=== PATIENT | male | born 1925 | race Caucasian/White ===

== ENCOUNTER 2017-01-14 14:45 | Inpatient (IN) | payer MEDICARE, OTHER ==
[~2017-01-14] VITALS: Ht 167.6 cm; Wt 63.5 kg
[2017-01-14] MEDS ORDERED: NALOXONE 0.4 MG/ML VIAL. ONE (15:02)
[2017-01-14] MEDS ORDERED: IV NORMAL SALINE 1,000ML 1,000 ML IV SCH (15:08)
[2017-01-14] MEDS ORDERED: 0.9 % SODIUM CHLORIDE 10 ML DISP.SYRIN. IV PRN (15:15)
--- NOTE | 2017-01-14 15:23 | PHYS DOC ---
Past History Past Medical History: Dementia, Depression, GERD, Hypertension Smoking: Non-smoker Alcohol Use: None Drug Use: None Adult General Chief Complaint Chief Complaint: ALTERED MENTAL STATUS HPI HPI He is a pleasant 89-year-old male who is been brought into the emergency department for acute altered mental status changes and collapse. Patient is normally living in assisted living facility [facility] in which he was noted over the last 2 days of increased confusion. Today patient was found undressed and masturbating in public space in the facility. He was brought into [facility] evaluation. While up there patient exhibited no symptoms no complaints and was actually referred to the ER for an evaluation and clearance for admission to the hospital. Patient only complained to staff was that he was sleepy. While being transported down here at some point in time the patient became unresponsive, according to the family he began to turn somewhat blue and was not answering any questions or moving. Upon arrival here he was transferred to a wheelchair and brought in by staff in emergent sitting. Upon arrival he was placed on the gurney and noted to have a brisk bounding carotid pulse. His skin was warm without diaphoresis he had peripheral pulses noted at the radial and dorsalis pedis and femoral arteries. Patient had no spontaneous eye opening was withdrawing to pain, his gag was intact, is vital signs were stable. Patient's Accu-Chek on arrival was 90. Patient was immediately placed on the monitors, crash cart was brought to the bedside and he was placed on appropriate chest pads, he was administered 0.04 of Narcan which did not change. Patient was unable to provide any admission. Looking from his medical records he is presently being treated for depression, anxiety, osteoporosis, high blood pressure, dementia, reflux, And constipation.. After the patient was finally settled I spoke at length with the daughter at the bedside who claims over the last several weeks patient has been taking that he's been with the nursing staff that they've become increasingly concerned with. I'm saying this to them they're not surprised this is the act he attempted. Review of Systems Review of Systems Patient was not able to provide any history for us or review of systems was provided is provided by family who came with him. Constitutional: Denies fever or chills [] Eyes: Denies change in visual acuity, redness, or eye pain [] HENT: Denies nasal congestion or sore throat [] Respiratory: Denies cough or shortness of breath [] Cardiovascular: No additional information not addressed in HPI [] GI: Denies abdominal pain, nausea, vomiting, bloody stools or diarrhea [] : Denies dysuria or hematuria [] Musculoskeletal: Denies back pain or joint pain [] Integument: Denies rash or skin lesions [] Neurologic: Denies headache, he's had increased sleepiness and bizarre behavior last 2 days. Endocrine: Denies polyuria or polydipsia [] Current Medications Current Medications Current Medications Medications (Trade) Dose Ordered Sig/Ana Start Time Stop Time Status Last Admin Dose Admin Naloxone HCl (Narcan) 0.4 mg STK-MED ONCE 01/14/17 15:02 01/14/17 15:03 DC Allergies Allergies Allergies Coded Allergies Type Severity Reaction Last Updated Verified amlodipine Allergy Unknown 01/14/17 Yes amoxicillin Allergy Unknown 01/14/17 Yes fenofibrate Allergy Unknown 01/14/17 Yes morphine Allergy Unknown 01/14/17 Yes simvastatin Allergy Unknown 01/14/17 Yes Physical Exam Physical Exam Patient's vital signs heart rate of 52, blood pressure 161/78, oxygen saturation 93% on room air upon arrival. His respiratory rate 28. Constitutional: Well developed, well nourished, no acute distress, non-toxic appearance. Patient is not diaphoretic not pale not cyanotic in appearance. HENT: Normocephalic, atraumatic, bilateral external ears normal, dry mucous membranes no oral exudates, nose normal. [] Eyes: PERRLA, EOMI, conjunctiva normal, no discharge. No anisocoria noted. Neck: Normal range of motion, no tenderness, supple, no stridor. [] Cardiovascular:Heart rate regular rhythm, no murmur patient is noted to be bradycardic. Lungs & Thorax: Bilateral breath sounds clear to auscultation [] Abdomen: Bowel sounds normal, soft, no tenderness, no masses, no pulsatile masses. No Guzmán Jalloh sign, rectal exam patient is good rectal tone guaiac- negative with no gross blood. Patient was very resistant to exam noted when we try to expose him. Skin: Warm, dry, no erythema, no rash. He does have a little scrotal edema and redness. Extremities: No tenderness, no cyanosis, no clubbing, ROM intact, no edema. [] Neurologic: The able to localize the pain spontaneously opens his eyes at this point, not speaking. It was noted that when his arm is placed over his head he directed the arm to the side of his body and out of his face. Psychologic: He unable to participate in this exam. Current Patient Data Vital Signs Laboratory Tests Test 01/14/17 15:10 01/14/17 15:13 01/14/17 15:15 White Blood Count 11.0 x10^3/uL (4.0-11.0) Red Blood Count 4.74 x10^6/uL (4.30-5.70) Hemoglobin 14.7 g/dL (13.0-17.5) Hematocrit 44.6 % (39.0-53.0) Mean Corpuscular Volume 94 fL (79-100) Mean Corpuscular Hemoglobin 31 pg (25-35) Mean Corpuscular Hemoglobin Concent 33 g/dL (31-37) Red Cell Distribution Width 13.4 % (11.5-14.5) Platelet Count 155 x10^3/uL (140-400) Neutrophils (%) (Auto) 67 % (31-73) Lymphocytes (%) (Auto) 21 % (24-48) L Monocytes (%) (Auto) 11 % (0-9) H Eosinophils (%) (Auto) 1 % (0-3) Basophils (%) (Auto) 1 % (0-3) Neutrophils # (Auto) 7.3 x10^3uL (1.8-7.7) Lymphocytes # (Auto) 2.3 x10^3/uL (1.0-4.8) Monocytes # (Auto) 1.2 x10^3/uL (0.0-1.1) H Eosinophils # (Auto) 0.1 x10^3/uL (0.0-0.7) Basophils # (Auto) 0.1 x10^3/uL (0.0-0.2) Urine Collection Type U cath Urine Color Yellow Urine Clarity Hazy Urine pH 5.5 Urine Specific [place] 1.015 Urine Protein Neg (NEG-TRACE) Urine Glucose (UA) Neg mg/dL (NEG) Urine Ketones (Stick) Neg mg/dL (NEG) Urine Blood Trace (NEG) Urine Nitrite Neg (NEG) Urine Bilirubin Neg (NEG) Urine Urobilinogen Dipstick 0.2 mg/dL (0.2 mg/dL) Urine Leukocyte Esterase Neg (NEG) Urine RBC 1-2 /HPF (0-2) Urine WBC Occ /HPF (0-4) Urine Squamous Epithelial Cells None /LPF Urine Bacteria 0 /HPF (0-FEW) Urine Mucus Slight /LPF Sodium Level 140 mmol/L (136-145) Potassium Level 4.2 mmol/L (3.5-5.1) Chloride Level 105 mmol/L (98-107) Carbon Dioxide Level 26 mmol/L (21-32) Anion Gap 9 (6-14) Blood Urea Nitrogen 18 mg/dL (8-26) Creatinine 0.9 mg/dL (0.7-1.3) Estimated GFR (Cockcroft-Gault) 79.5 BUN/Creatinine Ratio 20 (6-20) Glucose Level 104 mg/dL (70-99) H Calcium Level 9.1 mg/dL (8.5-10.1) Magnesium Level 1.8 mg/dL (1.8-2.4) Total Bilirubin 0.7 mg/dL (0.2-1.0) Aspartate Amino Transferase (AST) 18 U/L (15-37) Alanine Aminotransferase (ALT) 18 U/L (16-63) Alkaline Phosphatase 111 U/L (46-116) Creatine Kinase 188 U/L (39-308) Creatine Kinase MB (Mass) 0.6 ng/mL (0.0-3.6) Creatine Kinase MB Relative Index 0.3 % (0-4) Troponin I Quantitative < 0.017 ng/mL (0-0.055) TN-Vln-I-Type Natriuretic Peptide 917 pg/mL (0-449) H Total Protein 7.5 g/dL (6.4-8.2) Albumin 3.7 g/dL (3.4-5.0) Albumin/Globulin Ratio 1.0 (1.0-1.7) Lipase 148 U/L (73-393) Urine Opiates Screen Neg (NEG) Urine Methadone Screen Neg (NEG) Urine Barbiturates Neg (NEG) Urine Phencyclidine Screen Neg (NEG) Urine Amphetamine/Methamphetamine Neg (NEG) Urine Benzodiazepines Screen Neg (NEG) Urine Cocaine Screen Neg (NEG) Urine Cannabinoids Screen Neg (NEG) Urine Ethyl Alcohol Neg (NEG) Salicylates Level 0.7 mg/dL (2.8-20.0) L Salicylate Last Dose Date Unk Salicylate Last Dose Time Unk Acetaminophen Level 4.0 mcg/mL (10-30) L Acetaminophen Last Dose Date Unk Acetaminophen Last Dose Time Unk Ethyl Alcohol Level < 10 mg/dL (0-10) EKG EKG [] EKG timed [address] Mahan demonstrates sinus bradycardia with heart rate 53. Urine: 62, QRS is 82, QTc is 434 NORMAL LIMITS. PATIENT HAS SOME NONSPECIFIC T-WAVE INVERSION IN INFERIOR LEADS NO ST SEGMENT ELEVATION IN AVR THERE IS T-WAVE INVERSION IN V1 THAT IS SOME LIMITATION LATERAL LEADS OR ISCHEMIC CHANGES THAT I CAN SEE. Radiology/Procedures Radiology/Procedures [] [address] [address] IMAGING REPORT Signed PATIENT: CHRISTIANE MCCOLLUM ACCOUNT: [id number] : 1925 LOCATION: ER AGE: 89 SEX: M EXAM STATUS: REG ER ORD. PHYSICIAN: MAURICE MAHAN MD REASON: unresponsive possible syncope PROCEDURE: PORTABLE CHEST 1V Chest radiograph 01/14/2017 at 1513 hours Indication: Unresponsive, possible syncope Comparison: None available Technique: Single upright portable view of the chest is provided. Findings: Cardiomediastinal silhouette is within normal limits. No pleural effusions, pulmonary vascular congestion or pneumothorax. The lungs are clear. Osseous structures are normal. Impression: No acute cardiopulmonary process. DICTATED AND SIGNED BY: MARY ARMSTRONG MD DATE: 01/14/17 154 CC: MAURICE MAHAN MD; SMOOTH ZHU JR, MD ~ [address] [address] IMAGING REPORT Signed PATIENT: CHRISTIANE MCCOLLUM ACCOUNT: [id number] : 1925 LOCATION: ER AGE: 89 SEX: M EXAM STATUS: REG ER ORD. PHYSICIAN: MAURICE MAHAN MD REASON: unresponsive PROCEDURE: CT HEAD WO CONTRAST CT of the head without contrast, 01/14/2017: History: Altered mental status, patient unresponsive There is mild cerebral atrophy. The ventricles are within normal limits in size. There is no shift of the midline structures. There is no evidence of acute intracranial hemorrhage or mass effect. There is calcific plaquing of the distal internal carotid and vertebral arteries. There is mild mucosal thickening in both ethmoid and maxillary sinuses. No free fluid is evident in the sinuses. IMPRESSION: No acute intracranial abnormality is detected. PQRS Compliance Statement: One or more of the following individualized dose reduction techniques were utilized for this examination: 1. Automated exposure control 2. Adjustment of the mA and/or kV according to patient size 3. Use of iterative reconstruction technique DICTATED AND SIGNED BY: LANA DESAI MD DATE: 01/14/171532 CC: MAURICE MAHAN MD; SMOOTH ZHU JR, MD ~ Course & Med Decision Making Course & Med Decision Making Pertinent Labs and Imaging studies reviewed. (See chart for details) Time is now 3:17 PM patient is awake and speak, opens his eyes spontaneously and will follow commands. Check again on arrival is 90. Patient was never in asystole only sinus bradycardia. Patient will be evaluated for causes of syncope My syncope differential includes but not limited to: Neurally mediated vasovagal syncope, situational syncope, cardiac sinus syncope , orthostatic hypertension, medications, psychiatric interventions, neurologic syncope, cardiogenic syncopal B, to include organic heart disease congestive heart failure, cardiac dysrhythmia, seizure disorder, stroke or transient ischemic attack, bradycardia dysrhythmias, tachycardia dysrhythmias, PT, V. fib V. fib, cardiac abnormalities like first degree secondary third-degree AV blocks , prolonged QT, hypertrophic Alberto myopathy, severe pulmonic stenosis, pulmonary arterial hypertension, atrial myxomas, aortic stenosis, valvular failure, alcohol consumption, adrenal insufficiency, drug effects from things like antidepressants, antihypertensive agents like beta blockers, vasodilators including calcium channel blockers and nitrates, autonomic insufficiency. Was initially considered upon arrival. His may also be secondary gain secondary to the idea that he does not want to be admitted to [facility] psychiatric floor. Time is now 3:30 patient is awake and alert and the first question of his mouth was that he wanted to know if everyone knew that he was still alive. More more story and his presentation seemed to be staged. At this point after discussion with family and reviewing his laboratory work which is really unremarkable. Patient will be admitted to the hospital for rule out [place] process to ensure that his neurologic status was back to baseline. And then transferred or admitted to the [facility] facility. Automatic Oven Operator note: Paged internal medicine retail sales consultant hospitalist at approximately 4: 20 PM Automatic Oven Operator called at of the service Dr. Elie MACKAY return my phone call at 4:30 PM Consult called back at Discussed the case I presented and they agreed with admission. Time of acceptance for 432 PM Impression: Near syncope, dementia, behavioral changes, [] Dragon Disclaimer Dragon Disclaimer This chart was dictated in whole or in part using Voice Recognition software in a busy, high-work load, and often noisy Emergency Department environment. It may contain unintended and wholly unrecognized errors or omissions. Departure Departure: Impression: Primary Impression: Near syncope Additional Impressions: Unresponsive Sinus bradycardia Disposition: ADMITTED INPATIENT Admitting Physician: Ally Rankin Condition: GUARDED Problem Qualifiers MAURICE MAHAN MD Jan 14, 2017 15:23
[2017-01-14 15:30] LABS: BASO # 0.1 x10^3/uL (0.0-0.2); BASO % 1 % (0-3); EOS # 0.1 x10^3/uL (0.0-0.7); EOS % 1 % (0-3); HEMATOCRIT 44.6 % (39.0-53.0); HEMOGLOBIN 14.7 g/dL (13.0-17.5); LYMPH # 2.3 x10^3/uL (1.0-4.8); LYMPH % 21 % (24-48); MEAN CORPUSCULAR HEMOGLOBIN 31 pg (25-35); MEAN CORPUSCULAR HGB CONC 33 g/dL (31-37); MEAN CORPUSCULAR VOLUME 94 fL (79-100); MONO # 1.2 x10^3/uL (0.0-1.1); MONO % 11 % (0-9); NEUT # 7.3 x10^3uL (1.8-7.7); NEUT % 67 % (31-73); PLATELET COUNT 155 x10^3/uL (140-400); RED BLOOD COUNT 4.74 x10^6/uL (4.30-5.70); RED CELL DISTRIBUTION WIDTH 13.4 % (11.5-14.5)
[2017-01-14] MEDS ORDERED: NALOXONE 0.4 MG/ML VIAL. IV ONE (15:30)
[2017-01-14 15:35] LABS: BARBITURATES NEG (NEG); BENZODIAZEPINES NEG (NEG); CANNABINOIDS NEG (NEG); COCAINE NEG (NEG); METHADONE NEG (NEG); OPIATES NEG (NEG); PHENCYCLIDINE NEG (NEG)
[2017-01-14 15:36] LABS: AMPHETAMINE/METHAMPHETAMINE NEG (NEG)
--- NOTE | 2017-01-14 15:37 | RAD ---
CT of the head without contrast, 01/14/2017: History: Altered mental status, patient unresponsive There is mild cerebral atrophy. The ventricles are within normal limits in size. There is no shift of the midline structures. There is no evidence of acute intracranial hemorrhage or mass effect. There is calcific plaquing of the distal internal carotid and vertebral arteries. There is mild mucosal thickening in both ethmoid and maxillary sinuses. No free fluid is evident in the sinuses. IMPRESSION: No acute intracranial abnormality is detected. PQRS Compliance Statement: One or more of the following individualized dose reduction techniques were utilized for this examination: 1. Automated exposure control 2. Adjustment of the mA and/or kV according to patient size 3. Use of iterative reconstruction technique
[2017-01-14 15:42] LABS: BACTERIA,URINE 0 /HPF (0-FEW); BILIRUBIN,URINE NEG (NEG); CLARITY,URINE HAZY; COLOR,URINE YELLOW; GLUCOSE,URINE NEG (NEG); NITRITE,URINE NEG (NEG); UROBILINOGEN,URINE 0.2 mg/dL (0.2 mg/dL); WBC,URINE OCC /HPF (0-4)
--- NOTE | 2017-01-14 15:44 | RAD ---
Chest radiograph 01/14/2017 at 1513 hours Indication: Unresponsive, possible syncope Comparison: None available Technique: Single upright portable view of the chest is provided. Findings: Cardiomediastinal silhouette is within normal limits. No pleural effusions, pulmonary vascular congestion or pneumothorax. The lungs are clear. Osseous structures are normal. Impression: No acute cardiopulmonary process.
[2017-01-14 15:53] LABS: SALIC 0.7 mg/dL (2.8-20.0)
[2017-01-14 15:55] LABS: ALBUMIN 3.7 g/dL (3.4-5.0); CALCIUM 9.1 mg/dL (8.5-10.1); CREATININE 0.9 mg/dL (0.7-1.3); GFR 79.5; MAGNESIUM 1.8 mg/dL (1.8-2.4); POTASSIUM 4.2 mmol/L (3.5-5.1); TOTAL BILIRUBIN 0.7 mg/dL (0.2-1.0); TOTAL PROTEIN 7.5 g/dL (6.4-8.2)
[2017-01-14] MEDS ORDERED: ACETAMINOPHEN 325 MG TABLET PO PRN (16:15)
--- NOTE | 2017-01-14 16:23 | EKG ---
[address] [address] Test Date: 2017-01-14 Test Time: 15:00:30 Pat Name: CHRISTIANE MCCOLLUM Department: Room: Gender: M Orchid Grower: NICHOL : 1925 Requested By: MAURICE MAHAN Order Number: [id number] Reading MD: Measurements Intervals [place] Rate: 53 P: 25 MO: 162 QRS: -32 QRSD: 92 T: -21 QT: 460 QTc: 434 Interpretive Statements SINUS RHYTHM ABNORMAL LEFT AXIS DEVIATION LEFT ANTERIOR FASCICULAR BLOCK QRS(T) CONTOUR ABNORMALITY CANNOT RULE OUT ANTEROSEPTAL MYOCARDIAL DAMAGE T ABNORMALITY IN INFERIOR LEADS RI6.01 Unconfirmed report No previous ECG available for comparison
[2017-01-14 17:22] VITALS: BP 176/66
[2017-01-14] MEDS: IV NORMAL SALINE 1,000ML 1,000 ML IV SCH (17:44)
--- NOTE | 2017-01-14 17:55 | NUR ---
The patient, CHRISTIANE MCCOLLUM, 89 y/o, M admitted by YUNI AMADOR MD, was given written information regarding hospital policies, unit procedures and contact persons. Patient admitted to room 109 from the ED and arrived at approx. 1715 via EMS. Valuables were checked and left in room with patient. Vital signs assessed and patient given meal tray. Patient's family at the bedside.
[2017-01-14] MEDS ORDERED: METO25TA4 PO (19:27)
[2017-01-14] MEDS ORDERED: CALC-450 PO (19:27)
[2017-01-14] MEDS ORDERED: MEMA21CA PO (19:27)
[2017-01-14] MEDS ORDERED: ACET500T68 PO (19:27)
[2017-01-14] MEDS ORDERED: LOPE2CAP PO (19:27)
[2017-01-14] MEDS ORDERED: CYAN10005 PO (19:27)
[2017-01-14] MEDS ORDERED: RANI150T2 PO (19:27)
[2017-01-14] MEDS ORDERED: GLUC-142 PO (19:27)
[2017-01-14] MEDS ORDERED: MV-M1TAB36 PO (19:27)
[2017-01-14] MEDS ORDERED: ALPR0.254 PO (19:27)
[2017-01-14] MEDS ORDERED: ESCITALOPRAM OX20 MG PO (19:27)
[2017-01-14] MEDS ORDERED: DONE10TA7 PO (19:27)
[2017-01-14] MEDS ORDERED: TRIA15CR50 TP (19:27)
[2017-01-14] MEDS ORDERED: FAMOTIDINE 20 MG TABLET PO PRN (20:00)
[2017-01-14] MEDS ORDERED: ALPRAZolam 0.25 MG TABLET PO PRN ×2 (20:00)
[2017-01-14] MEDS ORDERED: LOPERAMIDE 2 MG CAPSULE PO PRN (20:00)
[2017-01-14] MEDS ORDERED: TRIAMCINOLONE ACETONIDE 0.5% TOPICAL CREAM 15GM TUBE. TP PRN (20:00)
[2017-01-14] MEDS ORDERED: DONEPEZIL HCL 10 MG TABLET PO SCH (21:00)
[2017-01-14] MEDS: ACETAMINOPHEN 500 MG TABLET PO SCH (21:10)
[2017-01-14 23:35] VITALS: BP 142/58
--- NOTE | 2017-01-15 00:41 | ACF ---
Admission Criteria Forms MENTAL STATUS CHANGE Clinical Indications for Inpatient Care (Place 'X' for any and all applicable criteria): Ongoing inpatient care may be needed for 1 or more of the following(1)(2)(3)(5)( 6): [X]I. Suspected serious etiology (eg, medical disorder, ADMINISTRATION SPECIALIST event) of altered mental status [ ]II. Danger to self or others not manageable at lower level of care [ ]III. Grave disability (eg, inability to perform self care necessary at lower level of care) [ ]IV. Agitation or inappropriate behavior interfering with care for primary condition (eg, attempting to discontinue lines or drains prematurely, unable to cooperate with respiratory care) [ ]V. Delirium [A] [D][E] as described by 1 or more of the following(26): [ ]a) Delirium due to alcohol or sedative [F] withdrawal [ ]b) Delirium of uncertain etiology that has not responded to appropriate empiric treatment [ ]c) Delirium that prevents performance of a life-sustaining function (eg, feeding or hydrating oneself) [ ]. General contraindications and/or Inappropriate clinical situations for Observational Care in patients with Mental Status Change, when ANY ONE of the following is required: [ ]a) Prediction of prolongation of LOS based on ANY ONE of the following may be considered as a contraindication for observational care 2, 3, 4, 5, 6, 7, 8, 9, 10, 11 [ ]i) Age > 65 yrs. [ ]ii) Patient arriving by ambulance [ ]iii) Patient with high acuity [ ]iv) Patient requiring vital sign monitoring [ ]v) Patient on IV medication [ ]b) Systolic blood pressures greater than or equal to 180mmHg 3, 12 [ ]c) Patient with altered mental status including delirium and other alteration of consciousness, (3) [ ]d) Patient whose discharge disposition will be to a [facility]cf home or rehabilitation home should not be managed in Emergency Department Observation Unit. CMS rule requires 3 days hospital stay before such placement.3,13 [ ]e) Patient with failure to thrive due to broad array of etiologies 3,16,17 [ ]f) Inability to ambulate 3,14 Extended stay beyond goal length of stay for the primary condition may be needed until ALL of the following are present(3)(5): [ ]a) Underlying medical etiology of mental status change is absent, or has been established and adequately treated [ ]b) Danger to self or others is absent or manageable at lower level of care. [ ]c) Behavior crisis management, including physical or chemical restraints, is not required or available at lower level of car [ ]d) Substance or alcohol withdrawal is absent or manageable at lower level of care. [ ]e) Behavioral symptoms (eg, agitation, somnolence, inappropriate behavior) are absent, or are manageable at lower level of care. The original [facility] content created by [facility] has been revised. The portions of the content which have been revised are identified through the use of italic text or in bold, and [facility] has neither reviewed nor approved the modified material. All other unmodified content is copyright [facility]. Please see references footnoted in the original [facility] edition 2016 Admission Criteria Met?: Yes DANA CHAWLA Jan 15, 2017 00:41
[2017-01-15] MEDS: IV NORMAL SALINE 1,000ML 1,000 ML IV SCH (04:01)
[2017-01-15 05:15] VITALS: BP 133/71
--- NOTE | 2017-01-15 07:50 | NUR ---
Metoprolol held, HR 51 at rest. Pt had syncopal episode yesterday. Will discuss with physician in regards to possibly needing lower dose of metoprolol.
[2017-01-15] MEDS: ACETAMINOPHEN 500 MG TABLET PO SCH ×2 (08:10→14:42)
[2017-01-15] MEDS: MEMANTINE 5 MG TABLET. PO SCH ×2 (08:16→14:43)
[2017-01-15] MEDS ORDERED: CALCIUM CARB/VIT D3 500/200 TABLET PO SCH (09:00)
[2017-01-15] MEDS ORDERED: CITALOPRAM 20 MG TABLET. PO SCH (09:00)
[2017-01-15] MEDS ORDERED: GLUCOSAMINE/CHOND 500/400MG CAPSULE PO SCH (09:00)
[2017-01-15] MEDS ORDERED: MULTIVITAMIN with MINERAL TABLET. ONE (09:00)
[2017-01-15] MEDS ORDERED: CALCIUM CARB/VIT D3 500/200 TABLET ONE (09:00)
[2017-01-15] MEDS ORDERED: MEMANTINE 5 MG TABLET. ONE ×2 (09:00)
[2017-01-15] MEDS ORDERED: CITALOPRAM 20 MG TABLET. ONE (09:00)
[2017-01-15] MEDS ORDERED: METOPROLOL TART IMMED RELEASE 25 MG TABLET PO SCH (09:00)
[2017-01-15] MEDS ORDERED: GLUCOSAMINE/CHOND 500/400MG CAPSULE PO ONE (09:00)
[2017-01-15] MEDS ORDERED: MULTIVITAMIN I-VITE TABLET. PO SCH (09:00)
[2017-01-15 11:29] VITALS: BP 159/71
--- NOTE | 2017-01-15 15:40 | HP ---
ADMIT DATE: 01/15/2017 HISTORY OF PRESENT ILLNESS: The patient is an 89-year-old male patient, resident at [facility], was basically brought yesterday to the Emergency Department with acute altered mental status and collapsed. He normally resides in assisted living facility in [place], in which he was noted over the last 2 days of increased confusion and he was found actually undressed and masturbating in public space in the facility and he was brought into [facility]'s behavioral health evaluation. While up there, he exhibited no symptoms, no complaints and was actually referred to the ER for an evaluation and clearance for admission. The patient's only complaint to staff was that he was sleepy while being transported down to the Emergency Room. At some point in time, the patient became unresponsive. According to the family, he began to turn somewhat blue and was not answering any questions or moving. Upon arrival here, he was transferred to wheelchair and brought in by staff to an emergent sitting. He was placed in a gurney and noted to have brisk bounding carotid pulses. His skin was warm without diaphoresis. He had had peripheral pulses noted and dorsalis pedis and femoral arteries. He was withdrawing pain. His gag was intact. His vital signs were stable. His Accu-Cheks was 90 mg. He was immediately placed on the monitor. Crash cart was brought to the bedside. He was placed on appropriate chest bands. He was in fact given Narcan 0.4 mg without any changes. His daughter stated that over the last several weeks, the patient has been stating that he has been with the nursing staff as such they have become increasingly concerned and basically was evaluated in the Emergency Room where he was investigated and was found to be in sinus bradycardia, however he is on metoprolol. His first set of cardiac enzyme was less than 0.017. He was admitted to [address] [place] [address] to do 2 more sets of cardiac enzymes and to consult the cardiology team for possible syncopal episode. The patient himself is extremely demented and on questioning him, he denied any complaint. PAST MEDICAL HISTORY: Significant for hypertension, gastroesophageal reflux disease, depression, and dementia. He has also had bladder cancer. PAST SURGICAL HISTORY: Unremarkable. FAMILY HISTORY: Unremarkable. SOCIAL HISTORY: He is , lives in assisted living. He has apparently two daughters and one son, although he claims he has too many of them. He stated he used to be an ex-smoker and used to drink alcohol heavily, but not anymore. He is retired from [employer] business according to him. ALLERGIES: He is allergic to AMLODIPINE, AMOXICILLIN, FENOFIBRATE, MORPHINE and SIMVASTATIN. MEDICATIONS: He is currently on following medications: He is on Tylenol 500 mg 2 tablets 3 times a day; alprazolam 0.5 mg every 6 hours; alprazolam 0.25 mg, he takes 2 tablets every 6 hours for anxiety; calcium carbonate with vitamin D 1 tablet daily; cyanocobalamin 1000 mcg tablet once a month; Aricept 10 mg once a day; escitalopram oxalate 20 mg once a day; Osteo Bi-Flex tablet 1 tablet once a day; loperamide 2 mg as needed 3-4 times a day for diarrhea; Namenda XR 21 mg once a day; metoprolol 25 mg once a day. He has ranitidine 150 mg twice a day and triamcinolone acetonide cream apply 3 times a day. PHYSICAL EXAMINATION: GENERAL: On examining him, the patient looked well and was clearly in no apparent respiratory distress. He was pale, but no jaundice, cyanosis, or thyromegaly. No jugular venous distention. No limb edema. VITAL SIGNS: His heart rate was 53, blood pressure was 181/96, temperature was 98, respiratory rate 20, and oxygen saturation was 92% on room air. HEAD, EYES, EARS, NOSE, and THROAT: Showed normocephalic, atraumatic. NECK: Supple. HEART: Showed normal first and second heart sounds with no gallop, rub or murmur. CHEST: Clear to auscultation. No crepitation or rhonchi. ABDOMEN: Distended, soft, nontender. NEUROLOGIC: He is demented without any obvious lateralizing sign. All his cranial nerves are intact. EXTREMITIES: He moves extremities without difficulty, ambulates with a cane without any difficulty. LABORATORY DATA: His lab work on admission showed a serum sodium of 140, potassium 4.2, chloride 105, bicarbonate 26, anion gap of 9, BUN 18, creatinine 0.9, estimated GFR was 80 mL per minute. His glucose 104, calcium was 9.1, magnesium was 1.8. Total bilirubin, AST, ALT, alkaline phosphatase were normal. His first set of cardiac enzymes showed troponin to be less than 0.017. Beta natriuretic peptide was 917. Total protein 7.5, albumin 3.7. Serum lipase 148. White cell count was 11,000, hemoglobin 14.7, hematocrit 44.6, MCV 94 and platelet count of 155,000. His urinalysis was essentially unremarkable and urine toxicology was unremarkable. He did have a CT scan of the head, which basically showed that there is mild cerebral atrophy. The ventricles are within normal limits in size. There is no shift over the midline structures. There is no evidence of acute intracranial hemorrhage or mass effect. There is calcific plaquing of the distal internal carotid and vertebral arteries. There is mild mucosal thickening of both ethmoid and maxillary sinuses. No clear fluid is evident in sinuses. His chest x-ray showed that his cardiomediastinal silhouette is within normal limits. No pleural effusion, pulmonary vascular congestion, pneumothorax. The lungs are clear. Osseous structures are normal. PLAN: To admit to [facility] on telemetry bed. We will do 2 more sets of cardiac enzyme. We will consult the cardiology team, probably arrange for bilateral carotid Doppler ultrasound as well as echocardiogram and decide on further management accordingly. YUNI AMADOR MD DR: TERESO/anshu JOB#: [id number] / [id number]
[2017-01-15 15:50] VITALS: BP 166/63
--- NOTE | 2017-01-15 16:04 | NUR ---
Echo completed, patient down getting carotid dopplers at this time. Dr. Nguyen here at this time to see patient, discussed with doctor. States he will review echo and if everything is okay cardiac wilder then will be cleared by cardiology. Discussed status with family.
--- NOTE | 2017-01-15 17:11 | CARD ---
APPROVED REPORT EXAM: Two-dimensional and M-mode echocardiogram with Doppler and color Doppler. Other Information Quality : Average Rhythm : NSR INDICATION Syncope 2D DIMENSIONS Left Atrium(2D)3.4 (1.6-4.0cm)IVSd0.9 (0.7-1.1cm) Aortic Root(2D)2.9 (2.0-3.7cm)LVDd4.5 (3.9-5.9cm) LVOT Diameter2.1 (1.8-2.4cm)PWd1.0 (0.7-1.1cm) LVDs3.2 (2.5-4.0cm)FS (%) 28.3 % SV50.4 mlLVEF(%)54.9 (>50%) Aortic Valve AoV Peak Reynaldo.176.7cm/sAoV VTI43.0cm AO Peak GR.12.5mmHgLVOT Peak Reynaldo.104.8cm/s LVOT VTI 25.01cmAO Mean GR.7mmHg MIC (VMAX)2.01yk2LBR (VTI)2.00cm2 Mitral Valve MV E Yvpzjhgl30.2cm/sMV DECEL [id number] MV A Qpfeiyqj727.6cm/sMV WJK34ud E/A Ratio0.8MV A Yfaydzce991rl MVA (PHT)2.73cm2 Tricuspid Valve TR P. Avvqgfxm934tb/sTR Peak Gr.11mmHg LEFT VENTRICLE The left ventricle is normal size. There is normal left ventricular wall thickness. Left ventricle sy stolic function is normal. The Ejection Fraction is 50-55%. There is normal LV segmental wall motion. Tissue Doppler imaging reveals mild left ventricular diastolic dysfunction. Transmitral Doppler flow pattern is Grade I-abnormal relaxation pattern. RIGHT VENTRICLE The right ventricle is normal size. The right ventricular systolic function is normal. ATRIA The left atrium size is normal. The right atrium size is normal. The interatrial septum is intact wit h no evidence for an atrial septal defect or patent foramen ovale as noted on 2-D or Doppler imaging. AORTIC VALVE The aortic valve is mildly to moderately sclerotic. The aortic valve is trileaflet. Doppler and Color Flow revealed no significant aortic regurgitation. There is no significant aortic valvular stenosis. MITRAL VALVE The mitral valve leaflets are calcified. There is no mitral valve stenosis. Doppler and Color Flow re vealed trace mitral valve regurgitation. TRICUSPID VALVE The tricuspid valve is normal in structure and function. Doppler and Color Flow revealed no tricuspid valve regurgitation noted. There is no tricuspid valve stenosis. PULMONIC VALVE The pulmonic valve is not well visualized. Doppler and Color Flow revealed no pulmonic valvular regur gitation. There is no pulmonic valvular stenosis. GREAT VESSELS The aortic root is normal in size. Pulmonary veins not recorded. The IVC is normal in size and collap ses >50% with inspiration. PERICARDIAL EFFUSION There is no evidence of significant pericardial effusion. Critical Notification Critical Value: No <Conclusion> The left ventricle is normal size. Left ventricle systolic function is normal. The Ejection Fraction is 50-55%. There is normal left ventricular wall thickness. There is no significant aortic valvular stenosis. Doppler and Color Flow revealed no significant aortic regurgitation. Doppler and Color Flow revealed trace mitral valve regurgitation. Doppler and Color Flow revealed no tricuspid valve regurgitation noted. There is no evidence of significant pericardial effusion.
--- NOTE | 2017-01-15 17:16 | NUR ---
Dr. Rankin paged in regards to patient and will notify of ECHO and carotid results. Pt has removed both IVs and gown, requests to be dressed and leave at this time. Xanax given at this time to help decrease anxiety.
--- NOTE | 2017-01-15 17:28 | RAD ---
Carotid doppler ultrasound History: Syncopal episode, hypertension, smoker Multiple grayscale, color, and duplex spectral analysis waveform sonographic images were acquired of the carotid, subclavian, and vertebral arteries. Comparison: None Findings: RIGHT: PSV cm/sec EDV cm/sec Common carotid artery 78 9 Maximal internal carotid artery 76 19 External carotid artery 89 Vertebral artery 51 ICA/CCA ratio 0.98 LEFT: PSV cm/sec EDV cm/sec Common carotid artery 68 7 Maximum internal carotid artery could not be visualized External carotid artery 118 Vertebral artery 48 ICA/CCA ratio -- Velocities used to determine stenosis are known to correlate with NASCET angiographic criteria. Left internal carotid artery could not be visualized although reportedly patient moved during exam. There is antegrade flow in the bilateral vertebral arteries. There is intimal thickening bilaterally, also some mixed echogenicity plaque of the distal left common carotid artery and also the left carotid bulb and also of the right carotid bulb. Impression: 1. Left internal carotid artery could not be visualized, probably occluded of uncertain chronicity although exam reportedly degraded by motion. 2. There is mixed echogenicity plaque bilaterally. There is no evidence of a hemodynamically significant stenosis of the right internal carotid artery. FOR INTERNAL CODING PURPOSES Critical result: Findings discussed with patient's nurse Lucy at 01/15/2017 5:25 PM, to inform doctor of findings. RESULT CODE: (C) Electronically signed by: Idris Ramirez MD (01/15/2017 5:25 PM) [facility]
--- NOTE | 2017-01-15 18:02 | PDOC2 ---
CONSULT Date of Admission DATE: 01/15/17 TIME: 17:55 Reason for Consult: Possible syncope Referring Physician: Dr. Rankin Chief Complaint Decreased level of consciousness Source: Chart review Problem List Problems Medical Problems: (1) Near syncope Status: Acute (2) Sinus bradycardia Status: Acute (3) Unresponsive Status: Acute History of Present Illness The patient is an 89-year-old male who is brought to the emergency room yesterday due to several days of increasing mental confusion and possible collapse. Initial evaluation showed a sinus rhythm with no acute EKG ischemic changes and a normal troponin. CT head scan showed no acute changes. Patient had episodes of decreased level of consciousness and possible sinus bradycardia with rates into the 40s. He required no resuscitation. Narcan was not effected. He has been monitored overnight and remained in a sinus rhythm. Today he is responsive to questions. He denies chest pain or shortness of breath. He denies any dizziness today and is uncertain about the events overnight. His troponin has been normal 2. Echocardiogram and carotid ultrasound are pending. Cardiovascular: HTN CENTRAL NERVOUS SYSTEM: Dementia Psych: Depression Renal/: Bladder Ca. Past Surgical History: No pertinent history Family History: Hypertension Smoke: Quit ALCOHOL: other (test stopped the use of alcohol but possible past heavy use) Current Medications Current Medications Naloxone HCl (Narcan) 0.4 mg STK-MED ONCE .ROUTE ; Start 01/14/17 at 15:02; Stop 01/14/17 at 15:03; Status DC Sodium Chloride 1,000 ml @ 1,000 mls/hr Q1H IV Last administered on 01/14/17 15:44; Start 01/14/17 at 15:08; Stop 01/14/17 at 16:07; Status DC Sodium Chloride (Normal Saline Flush) 10 ml QSHIFT PRN IV AFTER MEDS AND BLOOD DRAWS; Start 01/14/17 at 15:15 Naloxone HCl (Narcan) 0.4 mg 1X ONCE IV Last administered on 01/14/17 15:17; Start 01/14/17 at 15:30; Stop 01/14/17 at 15:31; Status DC Sodium Chloride 1,000 ml @ 80 mls/hr [id number] IV Last administered on 04:01; Start 01/14/17 at 16:14; Stop 01/15/17 at 16:13; Status DC Acetaminophen (Tylenol) 650 mg PRN Q4HRS PRN PO FEVER; Start 01/14/17 at 16:15 ; Stop 01/15/17 at 16:14; Status DC Acetaminophen (Tylenol) 1,000 mg TID PO Last administered on 01/15/17 14:42; Start 01/14/17 at 21:00 Alprazolam (Xanax) 0.25 mg PRN Q6HRS PRN PO ANXIETY Last administered on 21:10; Start 01/14/17 at 20:00 Alprazolam (Xanax) 0.5 mg PRN Q6HRS PRN PO ANXIETY Last administered on 17:01; Start 01/14/17 at 20:00 Cyanocobalamin (Vitamin B-12) 1,000 mcg QMONTH PO ; Start 02/13/17 at 09:00 Donepezil HCl (Aricept) 10 mg HS PO Last administered on 01/14/17 21:10; Start 01/14/17 at 21:00 Loperamide HCl (Imodium) 2 mg QID PRN PO DIARRHEA; Start 01/14/17 at 20:00 Metoprolol Tartrate (Lopressor) 25 mg DAILY PO ; Start 01/15/17 at 09:00 Triamcinolone Acetonide (Aristocort) 1 ivy TID PRN PRN TP RASH; Start 01/14/17 at 20:00 Calcium/Vitamin D (Oscal D 500mg/ 200uts) 1 tab DAILY PO Last administered on 08:14; Start 01/15/17 at 09:00 Citalopram Hydrobromide (CeleXA) 40 mg DAILY PO Last administered on 01/15/17 08:14; Start 01/15/17 at 09:00 Glucosamine/ Chondroitin (Glucosamine-Chondroitin 500/400mg) 1 cap DAILY PO Last administered on 01/15/17 08:15; Start 01/15/17 at 09:00 Memantine (Namenda) 5 mg TID PO Last administered on 01/15/17 14:43; Start at 09:00 Multivitamins/ Minerals (I-Juan) 1 tab DAILY PO Last administered on 8/17/17at 08:10; Start 01/15/17 at 09:00 Famotidine (Pepcid) 20 mg BID PRN PO HEARTBURN / GAS; Start 01/14/17 at 20:00 Active Scripts Active Reported Alprazolam 0.25 Mg Tablet 2 Tab PO PRN Q6HRS PRN Alprazolam 0.25 Mg Tablet 1 Tab PO PRN Q6HRS PRN Triamcinolone Acetonide 15 Gm Cream..g. 1 Ivy TP TID PRN PRN Ranitidine Hcl 150 Mg Tablet 1 Tab PO BID PRN Donepezil Hcl 10 Mg Tablet 1 Tab PO HS Acetaminophen 500 Mg Tablet 2 Tab PO TID Loperamide (Loperamide Hcl) 2 Mg Capsule 2 Mg PO PRN 3-4XDAILY PRN Vitamin B-12 (Cyanocobalamin (Vitamin B-12)) 1,000 Mcg Tablet 1 Tab PO QMONTH Osteo Bi-Flex Tablet (Glucosamine/D3/Boswellia Destiny) 1 Each Tablet 1 Each PO DAILY Ocuvite Eye + Multi Tablet (Mv-Mn/FA/Vit K/Lycop/Lut/Zeaxa) 1 Each Tablet 1 Each PO DAILY Namenda Xr (Memantine Hcl) 21 Mg Cap.spr.24 21 Mg PO DAILY Metoprolol Tartrate 25 Mg Tablet 1 Tab PO DAILY Escitalopram Oxalate 20 Mg Tablet 1 Tab PO DAILY Caltrate 600 + D Soft Chew Tab (Calcium Carbonate/Vitamin D3) 1 Each Tab.chew 1 Each PO DAILY Allergies: Coded Allergies: amlodipine (Verified Allergy, Unknown, 01/14/17) amoxicillin (Verified Allergy, Unknown, 01/14/17) fenofibrate (Verified Allergy, Unknown, 01/14/17) morphine (Verified Allergy, Unknown, 01/14/17) simvastatin (Verified Allergy, Unknown, 01/14/17) General: YES: Fatigue PSYCHOLOGICAL ROS: YES: Anxiety Respiratory: YES: Shortness of breath, SOB with excertion General: No acute distress HEENT: Atraumatic Lungs: Clear to auscultation Heart: Regular rate Abdomen: Normal bowel sounds Extremities: No clubbing VITALS Vital Signs Date Time Temp Pulse Resp B/P (MAP) Pulse Ox O2 Delivery O2 Flow Rate FiO2 01/15/17 15:50 54 18 166/63 (97) 92 Room Air 01/15/17 11:29 98.1 01/15/17 05:15 2.0 Labs Laboratory Tests Test 01/14/17 14:58 01/14/17 15:10 01/14/17 15:13 01/14/17 15:15 Glucose (Fingerstick) 90 mg/dL (70-99) White Blood Count 11.0 x10^3/uL (4.0-11.0) Red Blood Count 4.74 x10^6/uL (4.30-5.70) Hemoglobin 14.7 g/dL (13.0-17.5) Hematocrit 44.6 % (39.0-53.0) Mean Corpuscular Volume 94 fL (79-100) Mean Corpuscular Hemoglobin 31 pg (25-35) Mean Corpuscular Hemoglobin Concent 33 g/dL (31-37) Red Cell Distribution Width 13.4 % (11.5-14.5) Platelet Count 155 x10^3/uL (140-400) Neutrophils (%) (Auto) 67 % (31-73) Lymphocytes (%) (Auto) 21 % (24-48) Monocytes (%) (Auto) 11 % (0-9) Eosinophils (%) (Auto) 1 % (0-3) Basophils (%) (Auto) 1 % (0-3) Neutrophils # (Auto) 7.3 x10^3uL (1.8-7.7) Lymphocytes # (Auto) 2.3 x10^3/uL (1.0-4.8) Monocytes # (Auto) 1.2 x10^3/uL (0.0-1.1) Eosinophils # (Auto) 0.1 x10^3/uL (0.0-0.7) Basophils # (Auto) 0.1 x10^3/uL (0.0-0.2) Urine Collection Type U cath Urine Color Yellow Urine Clarity Hazy Urine pH 5.5 Urine Specific [place] 1.015 Urine Protein Neg (NEG-TRACE) Urine Glucose (UA) Neg mg/dL (NEG) Urine Ketones (Stick) Neg mg/dL (NEG) Urine Blood Trace (NEG) Urine Nitrite Neg (NEG) Urine Bilirubin Neg (NEG) Urine Urobilinogen Dipstick 0.2 mg/dL (0.2 mg/dL) Urine Leukocyte Esterase Neg (NEG) Urine RBC 1-2 /HPF (0-2) Urine WBC Occ /HPF (0-4) Urine Squamous Epithelial Cells None /LPF Urine Bacteria 0 /HPF (0-FEW) Urine Mucus Slight /LPF Sodium Level 140 mmol/L (136-145) Potassium Level 4.2 mmol/L (3.5-5.1) Chloride Level 105 mmol/L (98-107) Carbon Dioxide Level 26 mmol/L (21-32) Anion Gap 9 (6-14) Blood Urea Nitrogen 18 mg/dL (8-26) Creatinine 0.9 mg/dL (0.7-1.3) Estimated GFR (Cockcroft-Gault) 79.5 BUN/Creatinine Ratio 20 (6-20) Glucose Level 104 mg/dL (70-99) Calcium Level 9.1 mg/dL (8.5-10.1) Magnesium Level 1.8 mg/dL (1.8-2.4) Total Bilirubin 0.7 mg/dL (0.2-1.0) Aspartate Amino Transf (AST/SGOT) 18 U/L (15-37) Alanine Aminotransferase (ALT/SGPT) 18 U/L (16-63) Alkaline Phosphatase 111 U/L (46-116) Creatine Kinase 188 U/L (39-308) Creatine Kinase MB (Mass) 0.6 ng/mL (0.0-3.6) Creatine Kinase MB Relative Index 0.3 % (0-4) Troponin I Quantitative < 0.017 ng/mL (0-0.055) JK-Ngo-O-Type Natriuretic Peptide 917 pg/mL (0-449) Total Protein 7.5 g/dL (6.4-8.2) Albumin 3.7 g/dL (3.4-5.0) Albumin/Globulin Ratio 1.0 (1.0-1.7) Lipase 148 U/L (73-393) Urine Opiates Screen Neg (NEG) Urine Methadone Screen Neg (NEG) Urine Barbiturates Neg (NEG) Urine Phencyclidine Screen Neg (NEG) Urine Amphetamine/Methamphetamine Neg (NEG) Urine Benzodiazepines Screen Neg (NEG) Urine Cocaine Screen Neg (NEG) Urine Cannabinoids Screen Neg (NEG) Urine Ethyl Alcohol Neg (NEG) Salicylates Level 0.7 mg/dL (2.8-20.0) Salicylate Last Dose Date Unk Salicylate Last Dose Time Unk Acetaminophen Level 4.0 mcg/mL (10-30) Acetaminophen Last Dose Date Unk Acetaminophen Last Dose Time Unk Ethyl Alcohol Level < 10 mg/dL (0-10) Test 01/14/17 15:50 01/14/17 21:20 01/15/17 03:30 Iron Level 33 ug/dL (65-175) Total Iron Binding Capacity 252 ug/dL (250-450) Iron Saturation 13 % (15-34) Vitamin B12 Level 321 pg/mL (247-911) 25-Hydroxy Vitamin D Total 31.1 ng/mL (30.0-100.0) Thyroid Stimulating Hormone (TSH) 1.219 uIU/mL (0.358-3.740) Troponin I Quantitative < 0.017 ng/mL (0-0.055) < 0.017 ng/mL (0-0.055) Images CT head scan shows no acute changes. Assessment/Plan 1. Decreased level of consciousness. Workup as above. CT head scan shows no acute changes. 2. Possible mild bradycardia. Reportedly heart rate is the 40s yesterday. Heart rate is been in a sinus rhythm overnight. EKG shows a sinus rhythm with no acute ischemic changes. Troponins have been normal 2. Will continue monitoring. We'll check an echocardiogram for LV function. If the patient's monitor shows no significant arrhythmias for the rest the day and his echo shows no significant abnormalities the patient could be discharged from a cardiac viewpoint with follow-up with his primary physician. Carotid ultrasound is also pending. 3. Possible dementia and depression. No acute CT head changes. Outpatient workup. 4. Hypertension. We'll continue present medications. Thank you for allowing us to participate in the care of your patient. Problems: ANITA JAY MD Jan 15, 2017 18:02
--- NOTE | 2017-01-15 18:46 | NUR ---
Pt discharged at this time with family independently to vehicle. Pt was requesting to leave and family wanted him to stay. Discussed with patients family that their is a possibility that patient would not be transferred to another facility tomorrow and would not have surgery due to age. Encouraged family to set up an appt with cardiology and vascular surgeon to discuss options. 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 Family and patient verbalize POC, patient going to assisted living. DC plans given to daughter
--- NOTE | 2017-01-16 01:43 | PN ---
DATE: 01/15/2017 SUBJECTIVE: The patient is sitting on the edge of the bed, eating his lunch comfortably in no apparent distress. He is awake, alert, somewhat confused. On questioning him, he denied any complaint, in particular denied any dizziness, lightheadedness, or vertigo. Denied any further episodes of syncope. Nursing staff stated that apart from sinus bradycardia, he did not voice any concern and the fact that he is on metoprolol tartrate only once a day that was held and his heart rate continued to be in the low 50 high 40s. In fact, his lowest heart rate was down to 45; however, he was able to walk with a cane without any difficulty. OBJECTIVE: GENERAL: On examining him, he looked well and was clearly in no apparent respiratory distress. VITAL SIGNS: His heart rate was 52, blood pressure 176/66, temperature was 97.4, respiratory rate was 20, and oxygen saturation was 94% on room air. HEAD, EYES, EARS, NOSE, AND THROAT: Showed normocephalic, atraumatic. NECK: Supple. HEART: Showed normal first and second heart sounds with no gallop, rub or murmur. CHEST: Clear to auscultation. No crepitation or rhonchi. ABDOMEN: Distended, soft, nontender. NEUROLOGIC: He was demented, but without any obvious lateralizing sign. All his cranial nerves are intact. He moves extremities without difficulty, ambulates with a cane, has 2 more sets of cardiac enzymes that were negative. PLAN: My plan is to arrange for him to have bilateral Doppler ultrasounds as well as an echocardiogram, await the Cardiology evaluation given that he probably has some form of sick sinus syndrome as he is only on metoprolol tartrate once a day and that was on hold and he continued to have marked sinus bradycardia. His EKG showed also that he has left anterior fascicular block. YUNI AMADOR MD DR: TERESO/anshu JOB#: [id number] / [id number]
[2017-02-13] MEDS ORDERED: CYANOCOBALAMIN (VITAMIN B-12) 1,000 MCG TABLET. PO SCH (09:00)
== END 2017-01-15 18:49 | disposition home or self-care (01) | DRG 309 ==
LOC: ER 14:53 → 1 SOUTH 16:13
PROVIDERS: ADMIT Internal Medicine; ATTEND Internal Medicine
DX: R00.1 Bradycardia, unspecified (principal); F03.91 Unspecified dementia, unspecified severity, with behavioral disturbance; K21.9 Gastro-esophageal reflux disease without esophagitis; I10 Essential (primary) hypertension; F32.9 Major depressive disorder, single episode, unspecified; F41.9 Anxiety disorder, unspecified; M81.0 Age-related osteoporosis without current pathological fracture; Z87.891 Personal history of nicotine dependence; Z85.51 Personal history of malignant neoplasm of bladder; Z88.8 Allergy status to other drugs, medicaments and biological substances; Z88.1 Allergy status to other antibiotic agents; Z82.49 Family history of ischemic heart disease and other diseases of the circulatory system
CPT/HCPCS: 36415; 70450; 71010; 80053; 80307; 81001; 82306; 82553; 82607; 82947; 83540; 83550; 83690; 83735; 83880; 84443; 84484; 85025; 87641; 93005; 93306; 93880; 96361; 96374; G0480; J2310; 99285-25; G0479; J7030